=== PATIENT | male | born 2000 | race Caucasian/White ===

== ENCOUNTER 2023-10-28 02:03 | Emergency (ER) | payer MEDICAID, OTHER ==
[~2023-10-28] VITALS: Ht 182.9 cm; Wt 61.2 kg
[2023-10-28] MEDS ORDERED: AMOX500T2 PO (03:01)
[2023-10-28] MEDS ORDERED: IBUPROFEN 600 MG TABLET ONE (03:05)
[2023-10-28 03:07] VITALS: BP 128/81; TEMP 98.6; O2SAT 98
[2023-10-28] MEDS ORDERED: IBUPROFEN 600 MG TABLET PO ONE (03:30)
== END 2023-10-28 03:08 | disposition home or self-care (01) ==
LOC: ER 02:12
DX: H66.91 Otitis media, unspecified, right ear (principal)